=== PATIENT | female | born 1945 | race Caucasian/White ===

== ENCOUNTER 2022-02-20 08:23 | Day surgery (SDC) | payer MEDICARE, OTHER, SELFPAY ==
[2022-02-20] VITALS (8 sets, daily range): BP systolic 157–184; BP diastolic 70–98; PULSE 78–92; RESP 16–18; TEMP 36.2; O2SAT 92–99; BMI 33.7
== END 2022-02-20 10:50 | disposition home or self-care (01) ==
PROVIDERS: PCP Family Medicine; Visit Provider Ophthalmology
DX: H25.813 Combined forms of age-related cataract, bilateral (principal); Z79.899 Other long term (current) drug therapy
CPT/HCPCS: 66984; V2632

== ENCOUNTER 2022-03-27 09:15 | Day surgery (SDC) | payer MEDICARE, OTHER, SELFPAY ==
[2022-03-23 13:43] VITALS: BMI 33.3
[2022-03-27] VITALS (8 sets, daily range): BP systolic 149–195; BP diastolic 72–95; PULSE 81–99; RESP 17–18; TEMP 36.1–36.4; O2SAT 94–100
== END 2022-03-27 12:25 | disposition home or self-care (01) ==
PROVIDERS: PCP Family Medicine; Visit Provider Ophthalmology
DX: H25.813 Combined forms of age-related cataract, bilateral (principal); Z79.899 Other long term (current) drug therapy
CPT/HCPCS: 66984; V2632